=== PATIENT | female | born 1970 | race Caucasian/White ===

== ENCOUNTER 2018-06-06 22:20 | Emergency (ER) | payer OTHER ==
[~2018-06-06] VITALS: Ht 167.6 cm; Wt 69.9 kg
[2018-06-06 22:26] VITALS: BP 121/76; Ht 167.6 cm; Wt 69.9 kg
== END 2018-06-06 23:10 | disposition home or self-care (01) ==
LOC: ED 22:20
DX: S51.852A Open bite of left forearm, initial encounter (principal); W54.0XXA Bitten by dog, initial encounter; Y93.89 Activity, other specified; Y92.89 Other specified places as the place of occurrence of the external cause; Y99.8 Other external cause status